=== PATIENT | male | born 1995 | race Caucasian/White ===

== ENCOUNTER → 2019-01-13 19:37 | Outpatient (CLI) | payer BC, SELFPAY ==
--- NOTE | 2019-01-13 19:42 | DI.RAD.S_ITS ---
PROCEDURE: XR HAND LT MIN 3V INDICATIONS: L finger pain TECHNIQUE: 3 views of the hand(s) acquired. COMPARISON: None. FINDINGS: Bones: No fractures or dislocations. Carpal bones are normally aligned. No suspicious bony lesions. Soft tissues: No suspicious soft tissue calcifications. IMPRESSION: No acute osseous abnormalities or malalignment. No suspicious soft tissue calcifications. Dictated by: Gómez Rutherford M.D. on 01/13/2019 at 20:19 Approved by: Gómez Rutherford M.D. on 01/13/2019 at 20:20
== END ==
LOC: RAD 19:41
PROVIDERS: Visit Provider Physician Assistant
DX: M79.645 Pain in left finger(s) (principal)
CPT/HCPCS: 73130